=== PATIENT | male | born 1975 | race Caucasian/White ===

== ENCOUNTER → 2016-05-26 | Outpatient (CLI) | payer OTHER ==
[~2016-05-26] MED LIST: ADVIN10/60 INH; ALBUAER2 INH; NXM/40 PO
[2016-05-26 15:18] LABS: DAYS OF ABSTINENCE 3; METHOD OF COLLECTION MASTURBATION; SEMEN COLOR GRAY OR GRAY-WHITE (GRY/GRYWHTE); SEMEN TIME OF COLLECTION 1420; SEMEN VOLUME 2.2 ML (>1.5); TYPE OF SPECIMEN CONTAINER STERILE CUP
[2016-05-27 23:11] LABS: SPERM VIABILITY STAIN NOT INDICATED % (>58%)
--- NOTE | 2016-05-30 11:12 | CODING QUERY NO DIAGNOSIS ---
TREATMENT RENDERED WITHOUT A DIAGNOSIS : 1975 To promote full compliance with coding requirements relating to patient care, physician participation is requested in all cases of brass plater uncertainty. Please assist us with providing a diagnosis/symptom for the test(s) below: A diagnosis/symptom was not documented on your Order. A valid diagnosis/symptom is required to bill all insurances. Please remember that we are unable to code a diagnosis of rule out, probable, possible, questionable, or suspected. DOS: 05/26/16 Tests that require a diagnosis: * SEMEN ANALYSIS DIAGNOSIS: Provider Signature: Date: Thank you Jackelyn Rivera [employer] Once completed, please kindly fax back to [phone] For questions please call [phone]
== END | disposition home or self-care (01) ==
LOC: C.LAB 13:49
PROVIDERS: ATTEND Family Medicine
DX: N46.9 Male infertility, unspecified (principal)